=== PATIENT | male | born 2000 | race Caucasian/White ===

== ENCOUNTER 2022-08-23 18:20 | Emergency (ER) | payer OTHER ==
[2022-08-23] MEDS ORDERED: tiZANidine 4 MG Tab PO STA (21:11)
[2022-08-23] MEDS ORDERED: Lidocaine 4% 1 each Patch TOP PRN (21:11)
[2022-08-23] MEDS ORDERED: Ketorolac 30 MG/ML SDV IM ONE (21:12)
== END 2022-08-23 22:41 | disposition home or self-care (01) ==
LOC: MW.ED 18:20
DX: S29.011A Strain of muscle and tendon of front wall of thorax, initial encounter (principal); Z88.0 Allergy status to penicillin
CPT/HCPCS: 71046; 93005; 96372; 99285; A9270; J1885